=== PATIENT | female | born 1965 | race Caucasian/White ===

== ENCOUNTER 2021-11-12 06:21 | Inpatient (IN) | payer BC ==
[2021-11-12] MEDS ORDERED: cefOXitin 2 GM Vial ONE (07:07)
[2021-11-12] MEDS ORDERED: fentaNYL 250 MCG/5 ML SDV ONE ×2 (07:09→09:30)
[2021-11-12] MEDS ORDERED: Succinylcholine 200 MG/10 ML MDV ONE (07:09)
[2021-11-12] MEDS ORDERED: Propofol 200 MG/20 ML SDV ONE (07:09)
[2021-11-12] MEDS ORDERED: Glycopyrrolate 0.2 MG/ML 5 ML MDV ONE (07:09)
[2021-11-12] MEDS ORDERED: Dexamethasone 4 MG/ML SDV ONE (07:09)
[2021-11-12] MEDS ORDERED: Rocuronium 50 MG/5 ML Vial ONE ×2 (07:09→09:30)
[2021-11-12] MEDS ORDERED: Lactated Ringers 1,000 ML ONE (07:09)
[2021-11-12] MEDS ORDERED: Neostigmine Methylsulfate 1 MG/ML 5 ML Syringe ONE (07:09)
[2021-11-12] MEDS ORDERED: Ondansetron 4 MG/2 ML SDV ONE (07:09)
[2021-11-12] MEDS ORDERED: Ketamine 20 MG in Sodium Chloride 0.9% 19.8 ML IV SCH (07:30)
[2021-11-12] MEDS ORDERED: Ketamine 500 MG/5 ML MDV IV SCH (07:30)
[2021-11-12] MEDS ORDERED: cefOXitin 2 GM in Sodium Chloride 0.9% 50 ML IV ONE (07:45)
[2021-11-12] MEDS ORDERED: Acetaminophen 500 MG Tab PO ONE (07:45)
[2021-11-12] MEDS ORDERED: Dextrose 5%-Lactated Ringers 1,000 ML IV SCH (07:45)
[2021-11-12] MEDS ORDERED: Celecoxib 200 MG Cap PO ONE (07:45)
[2021-11-12] MEDS ORDERED: Scopolamine 1.5 MG Transdermal Patch TOP ONE (07:45)
[2021-11-12] MEDS ORDERED: Labetalol 20 MG/4 ML Syringe ONE (10:03)
[2021-11-12] MEDS ORDERED: Sugammadex Sodium 200 MG/2 ML VIAL ONE (10:38)
[2021-11-12] MEDS ORDERED: hydrOXYzine HCL 100 MG/2 ML SDV IM ONE (11:04)
[2021-11-12] MEDS ORDERED: HYDROmorphone 1 MG/ML Syringe IV PRN (12:15)
[2021-11-12] MEDS ORDERED: HYDROmorphone 0.5 MG/0.5 ML Syringe IVPUSH PRN (12:15)
[2021-11-12] MEDS ORDERED: Labetalol 20 MG/4 ML Syringe IVPUSH PRN (12:15)
[2021-11-12] MEDS ORDERED: diphenhydrAMINE 50 MG/ML SDV IVPUSH PRN (12:15)
[2021-11-12] MEDS ORDERED: hydrOXYzine HCL 100 MG/2 ML SDV IM PRN (12:15)
[2021-11-12] MEDS ORDERED: Ondansetron 4 MG/2 ML SDV IVPUSH PRN (12:15)
[2021-11-12] MEDS ORDERED: Metoclopramide 10 MG/2 ML SDV IVPUSH PRN (12:15)
[2021-11-12] MEDS ORDERED: Acetaminophen 500 MG Tab PO PRN (12:15)
[2021-11-12] MEDS ORDERED: oxyCODONE 5 MG Tab PO PRN (12:15)
[2021-11-12] MEDS ORDERED: Cyclobenzaprine 10 MG Tab PO PRN (12:16)
[2021-11-12] MEDS: Dextrose 5%-Lactated Ringers 1,000 ML IV SCH ×2 (12:47→23:20)
[2021-11-12] MEDS ORDERED: Pantoprazole 40 MG Vial IVPUSH SCH (15:00)
[2021-11-12] MEDS: cefOXitin 2 GM in Sodium Chloride 0.9% 50 ML IV SCH ×2 (15:34→21:07)
[2021-11-12] MEDS: Acetaminophen 500 MG Tab PO SCH ×2 (15:34→23:06)
[2021-11-12] MEDS ORDERED: MVI, Adult with Vitamin K 10 ML, Thiamine 200 MG, Zinc/Copper/Manganese/Selenium 1 ML i... IV SCH ×4 (16:00)
[2021-11-12] MEDS: traMADol 50 MG Tab PO PRN ×2 (16:46→23:06)
[2021-11-12] MEDS: Heparin Sodium 5,000 Units/ML Vial SUBCUT SCH (17:02)
[2021-11-12] MEDS: Sertraline 50 MG Tab PO SCH (21:00)
[2021-11-12] MEDS: Atenolol 25 MG Tab PO SCH (21:00)
[2021-11-13] MEDS: cefOXitin 2 GM in Sodium Chloride 0.9% 50 ML IV SCH ×3 (04:08→14:45)
[2021-11-13] MEDS ORDERED: Iopamidol 612 MG/ML 50 ML SDV PO STA (04:21)
[2021-11-13] MEDS: Dextrose 5%-Lactated Ringers 1,000 ML IV SCH ×2 (05:23→14:48)
[2021-11-13] MEDS: Heparin Sodium 5,000 Units/ML Vial SUBCUT SCH ×2 (06:03→17:24)
[2021-11-13] MEDS: Acetaminophen 500 MG Tab PO SCH ×3 (06:04→21:37)
[2021-11-13] MEDS ORDERED: hydrOXYzine HCl 25 MG Tab PO PRN (07:22)
[2021-11-13] MEDS: Levothyroxine 25 MCG Tab PO SCH (07:45)
[2021-11-13] MEDS: SCOPOLAMINE PATCH CHECK TOP SCH (08:24)
[2021-11-13] MEDS: Celecoxib 200 MG Cap PO SCH ×2 (08:25→20:18)
[2021-11-13] MEDS: Lisinopril 10 MG Tab PO SCH (08:25)
[2021-11-13] MEDS ORDERED: MVI, Adult with Vitamin K 10 ML, Thiamine 200 MG, Zinc/Copper/Manganese/Selenium 1 ML i... IV SCH ×4 (16:00)
[2021-11-13] MEDS ORDERED: Pantoprazole 40 MG Delayed-Release Granules 1 Packet PO SCH (16:30)
[2021-11-13] MEDS: Ondansetron 4 MG Tab.DIS PO PRN (17:23)
[2021-11-13] MEDS: Atenolol 25 MG Tab PO SCH (20:18)
[2021-11-13] MEDS: Sertraline 50 MG Tab PO SCH (20:18)
[2021-11-14] MEDS: Dextrose 5%-Lactated Ringers 1,000 ML IV SCH (04:10)
[2021-11-14] MEDS: Acetaminophen 500 MG Tab PO SCH (06:06)
[2021-11-14] MEDS: Heparin Sodium 5,000 Units/ML Vial SUBCUT SCH (06:07)
[2021-11-14] MEDS: Levothyroxine 25 MCG Tab PO SCH (07:26)
[2021-11-14] MEDS: Celecoxib 200 MG Cap PO SCH (08:54)
[2021-11-14] MEDS: Lisinopril 10 MG Tab PO SCH (08:55)
[2021-11-14] MEDS: SCOPOLAMINE PATCH CHECK TOP SCH (08:59)
[2021-11-14] MEDS ORDERED: Cyanocobalamin (Vitamin B12) 1,000 MCG/ML SDV IM ONE (09:00)
[2021-11-14] MEDS: Ondansetron 4 MG Tab.DIS PO PRN (09:34)
== END 2021-11-14 09:44 | disposition home or self-care (01) | DRG 403 ==
LOC: JP.SDS 06:57 → EDSTATUS 09:45 → JP.MS 10:45
PROVIDERS: ADMIT Surgery; ATTEND Surgery
PROC: 0D164ZA Bypass Stomach to Jejunum, Percutaneous Endoscopic Approach (ICD-10-PCS; principal; 2021-11-12)
PROC: 0FB24ZX Excision of Left Lobe Liver, Percutaneous Endoscopic Approach, Diagnostic (ICD-10-PCS; 2021-11-12)
PROC: 0BQT4ZZ Repair Diaphragm, Percutaneous Endoscopic Approach (ICD-10-PCS; 2021-11-12)
DX: E66.01 Morbid (severe) obesity due to excess calories (principal); D50.9 Iron deficiency anemia, unspecified; Z68.41 Body mass index [BMI] 40.0-44.9, adult; R16.0 Hepatomegaly, not elsewhere classified; K44.9 Diaphragmatic hernia without obstruction or gangrene; K21.9 Gastro-esophageal reflux disease without esophagitis; F41.0 Panic disorder [episodic paroxysmal anxiety]; E78.5 Hyperlipidemia, unspecified; I10 Essential (primary) hypertension; E87.6 Hypokalemia; E03.9 Hypothyroidism, unspecified; Z79.890 Hormone replacement therapy; F32.9 Major depressive disorder, single episode, unspecified; Z90.49 Acquired absence of other specified parts of digestive tract; Z98.51 Tubal ligation status; Z79.899 Other long term (current) drug therapy; Z88.8 Allergy status to other drugs, medicaments and biological substances; Z91.018 Allergy to other foods; Z87.891 Personal history of nicotine dependence
CPT/HCPCS: 36415; 74240; 74240-26; 80053; 82728; 83036; 83735; 84100; 84443; 85027; 86850; 86900; 86901; 88307; 88313; A9270-GY; C9113; J0171; J0330; J0694; J1100; J1170; J1644; J2405; J2704; J2710; J2765; J2795; J3010; J3410; J3411; J3420; J3490; J7030; J7120; J7121; Q0162; Q9967